=== PATIENT | female | born 1960 | race Caucasian/White ===

== ENCOUNTER → 2024-01-12 06:27 | Day surgery (SDC) | payer OTHER, SELFPAY | LOC: GI 06:27 | PROVIDERS: ATTENDING PHYSICIAN Internal Medicine Gastroenterology | DX: Z12.11 Encounter for screening for malignant neoplasm of colon (principal); K57.30 Diverticulosis of large intestine without perforation or abscess without bleeding; K64.8 Other hemorrhoids; K62.89 Other specified diseases of anus and rectum; D12.3 Benign neoplasm of transverse colon | CPT/HCPCS: 45385; 88305 ==

== ENCOUNTER → 2024-08-19 13:39 | Outpatient (REF) | payer SELFPAY | LOC: HWWDC 13:39 | PROVIDERS: ATTENDING PHYSICIAN Obstetrics & Gynecology; FAMILY PHYSICIAN Internal Medicine | DX: Z12.31 Encounter for screening mammogram for malignant neoplasm of breast (principal) | CPT/HCPCS: 77063; 77067 ==

== ENCOUNTER 2025-04-20 21:16 | Emergency (ER) | payer OTHER, SELFPAY ==
[2025-04-20 21:22] VITALS: BP 134/73
[2025-04-20 21:46] LABS: % Basophils 0.3 % (0-2); % Immature Granulocytes 0.4 % (0-0.5); % Lymphocytes 2.9 % (20.5-51.1); % Monocytes 3.8 % (1.7-9.3); % Neutrophils 92.6 % (42.2-75.2); Absolute Lymphocytes 0.3 10^3/uL (1.2-3.4); Absolute Monocytes 0.4 10^3/uL (0.1-0.6); Absolute Neutrophils 9.6 10^3/uL (1.4-6.5); Hematocrit 35.1 % (37.0-47.0); Hemoglobin 12.3 g/dL (12.0-16.0); Mean Corpuscular Volume 88.4 fL (81.0-99.0); Nucleated Red Blood Cells % 0 %; Platelet Count 156 10^3/uL (130-400); Red Blood Cell Count 3.97 10^6/uL (4.20-5.40); Red Cell Dist. Width 12.6 % (11.5-14.5); White Blood Cell Count 10.4 10^3/uL (4.8-10.8)
[2025-04-20 21:58] LABS: Lactic Acid 0.8 mmol/L (0.7-2.0)
[2025-04-20 22:00] LABS: ALT (SGPT) 50 U/L (0-35); AST (SGOT) 53 U/L (14-36); Albumin 3.8 g/dl (3.5-5.0); Alkaline Phosphatase 66 U/L (38-126); Blood Urea Nitrogen 16 mg/dl (7-17); Carbon Dioxide 25 mmol/L (22-30); Chloride 104 mmol/L (98-107); Glucose 128 mg/dl (70-99); Potassium 3.8 mmol/L (3.5-5.1); Sodium 135 mmol/L (135-145); Total Bilirubin 0.6 mg/dl (0.2-1.3); Total Protein 6.3 g/dl (6.3-8.2); eGFR > 60.00
[2025-04-20 22:08] LABS: COVID-19 Antigen Negative (Negative)
[2025-04-20 22:24] VITALS: BP 150/74
[2025-04-20 22:28] VITALS: BMI 25.5
[2025-04-20 23:51] VITALS: BP 131/69
[2025-04-20] MEDS: MOTRIN 600 MG PO (23:51)
[2025-04-20] MEDS: DECADRON 10 MG PO (23:51)
[2025-04-21] VITALS: BP 135/67
[2025-04-21 01:00] VITALS: BP 126/64
--- NOTE | 2025-04-21 02:38 | ED.GENMED ---
History of Present Illness
General
Chief Complaint: Fever
Source: patient
Exam Limitations: none
Time Seen by Provider: 04/20/25 22:56
Nursing documentation reviewed up to this point in time: agreed with
History of Present Illness
History of Present Illness:
Note:
CHIEF COMPLAINT(S)
Fever, chills, and head pressure.
HISTORY OF PRESENT ILLNESS
The patient is a 65-year-old female presenting with fever, chills, and head pressure. Symptoms began on Monday and were initially erratic. As of yesterday, the symptoms have persisted throughout the entire day, with today reported as worse. The
patient describes intense fever sweats lasting for a couple of hours, alternating with chills so severe that she experiences shaking. The patient reports significant fatigue, She was concerned about a sinus infection and contacted a telemedicine
service earlier today, resulting in a prescription for an antibiotic. The patient reports taking the Augmentin but says, 'the meds do not seem to help yet.' She took 1 dose.
She has experienced vomiting prior to her arrival at the facility, without any blood in the vomitus�just orange juice. She denies diarrhea or constipation and describes normal bowel movements. She reports decreased urine output despite high fluid
intake. There is no chest pain or shortness of breath reported.
The patient mentions starting a blood pressure medication a week ago, which she discontinued due to adverse effects including a racing heart and feeling nauseous and lightheaded.
MEDICATIONS
- Lexapro
- Recently discontinued a blood pressure medication due to side effects.
REVIEW OF SYSTEMS
- General: Fever, sweats, chills, extreme fatigue
- Gastrointestinal: Nausea, vomiting
- Genitourinary: Decreased urine output
- Neurological: Lightheadedness on a previous medication (discontinued)
- Respiratory: No shortness of breath
- Cardiovascular: No chest pain
PHYSICAL EXAM
- Head: Evidence of fluid behind the ears
- Respiratory: Lungs sound perfect
Nursing notes reviewed and vital signs reviewed.
PLAN
The plan includes administering fluids and further evaluation once lab results are available. Consideration to start a steroid due to suspected excessive fluid behind ears, aiming for symptomatic relief.
DIFFERENTIAL DIAGNOSIS
The Differential Diagnosis includes, in no particular order and is not limited to:
1. Acute bacterial sinusitis
2. Viral infection (such as influenza)
3. Medication side effect or reaction
4. Urinary tract infection
5. Dehydration
7. Endocrine disorder (such as hyperthyroidism)
Disposition:
DIAGNOSIS
- Viral syndrome
SUMMARY OF ENCOUNTER
The patient is a 65-year-old female presenting with fever, chills, and head pressure since Monday. She described feeling like having the flu and started Augmentin for a suspected sinus infection. She was taking Advil and was seen in the emergency
department while febrile. Upon examination, the patient was afebrile and reported feeling much better. Lab results showed slightly elevated prednisone levels, and sinus imaging was negative.
DISPOSITION
Discharge
ASSESSMENT
The patient was assessed with a viral syndrome given her presentation and lab results.
PLAN
The plan is to discharge the patient with instructions for ongoing care as her symptoms are improving.
MEDICATION RECONCILIATION
- Augmentin was started prior to arrival for a suspected sinus infection.
- Advil was taken for symptom management.
MEDICAL DECISION MAKING
Number and Complexity of Problems Addressed:
The patient presented with acute concerns of fever and chills suggesting a viral infection. Administered labs and imaging to rule out other potential causes.
Data:
Lab results were collected and analyzed, with slightly elevated prednisone and negative sinus imaging influencing the final diagnosis decision.
Risk:
The patient was discharged with a diagnosis of viral syndrome. Her current medication and health status were reviewed and managed appropriately.
Phy Exam
Physical Exam
Physical Exam:
.
Sepsis
Sepsis Screening
Sepsis Assessment: Sepsis
Sepsis Screen
Sepsis Screen: Sepsis
Date: 04/22/25
Time: 22:08
Course
Orders/Labs/Results
Orders:
Orders
04/20/25 21:27
CR Chest - 2 Views Urgent
Comment:
Reason For Exam: suspected infection
04/20/25 21:33
COVID-19 Antigen Urgent
Source: Nasal Swab
Complete Blood Count/With Diff Urgent
Comprehensive Metabolic Panel Urgent
Lactic Acid Q4H
Comment: ON ICE, CANCEL 2ND ORDER IF FIRST LACTIC ACID LEVEL <2
Influenza A+B Rapid Molecular Urgent
VINEET Source: Nasal Swab
Specimen Description:
04/20/25 23:17
Ibuprofen [Motrin] 600 mg PO NOW STA
04/20/25 23:18
Dexamethasone Pf [Decadron] 10 mg PO NOW STA
04/21/25 01:07
CT Sinuses W/o Iv Contrast Urgent
Comment:
Reason For Exam: fever sinus pressure
Abnormal Lab Results
04/20/25
21:33
RBC 3.97 L 10^6/uL
(4.20-5.40)
Hct 35.1 L %
(37.0-47.0)
Absolute Neuts (auto) 9.6 H 10^3/uL
(1.4-6.5)
Absolute Lymphs (auto) 0.3 L 10^3/uL
(1.2-3.4)
Neutrophils % 92.6 H %
(42.2-75.2)
Lymphocytes % 2.9 L %
(20.5-51.1)
Glucose 128 H mg/dl
(70-99)
AST 53 H U/L
(14-36)
ALT 50 H U/L
(0-35)
04/20/25 21:33
04/20/25 21:33
Vital Signs
Initial and Last Documented VS:
Initial Vital Signs
Temp Pulse Resp BP Pulse Ox
101.3 F H 85 20 134/73 92
04/20/25 21:22 04/20/25 21:22 04/20/25 21:22 04/20/25 21:22 04/20/25 21:22
Last Documented Vital Signs
Temp Pulse Resp BP Pulse Ox
98.5 F 66 16 126/64 94
04/21/25 01:37 04/21/25 02:45 04/21/25 01:15 04/21/25 01:00 04/21/25 02:30
*Critical Care Note
Total Time (30-74mins, 75-104mins- exclusive of procedures): Not Applicable
ED Attending Note
-
Portions of this chart may have been created with voice recognition software.� Occasional wrong word or��sound alike� substitutions may have occurred due to the inherent limitations of voice recognition software.
Discharge Plan
Departure
Patient Disposition: Home (Routine Discharge)
Date of Disposition: 04/21/25
Time of Disposition: 02:41
Patient with high blood pressure during this ER visit?: Yes
Condition: Good
Discharge Problem:
Viral syndrome, Sinusitis
Instructions: Viral Syndrome (DC), Sinusitis in adults - ED discharge instructions, BLOOD PRESSURE
Prescriptions:
No Action
estradiol [Estradiol Transdermal Patch] 0.05 mg/24 hr Patch Weekly
1 patch TRANSDERMAL QWEEK
escitalopram oxalate [Lexapro] 10 mg Tablet
10 mg PO DAILY
Referrals:
Mary Gupta MD [Family Provider, Internal Medicine]
Activity Restrictions/Additional Instructions:
Please continue to take your Augmentin as previously prescribed
Thank You for choosing [facility].
It was a pleasure meeting you and taking part in your care. We hope for your continued healing and wellness.
Please read discharge instructions in their entirety. However, they are for general education and may not describe your exact diagnosis at discharge. Information on your ER visit and medical conditions were discussed with you along with appropriate
follow up information...
If indicated, please take your medications as instructed and indicated on discharge paperwork.
Please schedule a follow up appointment as directed. Call to schedule an appointment
Please return to the emergency department with ANY change in, persisting, or worsening of symptoms. If any of your symptoms do not improve, or persist, or become more severe within 6-12 hours, please return to the emergency department for further
care.
Please return to the emergency department if you develop a headache, neck pain/stiffness, fever greater than 100.4F, chest pain, shortness of breath, persistent nausea, vomiting, slurred speech, difficulty walking, numbness/tingling, weakness, signs
of infection or any other symptoms that are worrisome to you.
If you have any questions or concerns please do not hesitate to call the Hospital at or E-mail me directly at [email or web address]
Interventions
Interventions:
*Risk Screen - Suicide Last Done: 04/20/25 21:22
*General Assessment Last Done: 04/20/25 21:22
*Neglect/Abuse Screening Last Done: 04/20/25 21:22
*Nursing Disposition Last Done: 04/21/25 03:03
ED- Neurological Assessment Last Done: 04/20/25 23:16
ED-Skin Assessment Last Done: 04/20/25 23:16
Discharge Date and Time
Discharge Date/Time: 04/21/25 03:03
Print Language: [email or web address]
== END 2025-04-21 03:03 | disposition home or self-care (01) ==
LOC: EMR 21:16
PROVIDERS: Student in an Organized Health Care Education/Training Program; EMERGENCY PHYSICIAN Student in an Organized Health Care Education/Training Program; FAMILY PHYSICIAN Internal Medicine
DX: J01.90 Acute sinusitis, unspecified (principal); R42 Dizziness and giddiness; R11.2 Nausea with vomiting, unspecified; B34.9 Viral infection, unspecified; Z11.52 Encounter for screening for COVID-19; I10 Essential (primary) hypertension
CPT/HCPCS: 99284; 70486; 71046; 80053; 83605; 85025; 87502; 87811

== ENCOUNTER → 2025-09-24 14:35 | Outpatient (REF) | payer OTHER, SELFPAY | LOC: HWRAD 14:35 | PROVIDERS: ATTENDING PHYSICIAN Nurse Practitioner; FAMILY PHYSICIAN Internal Medicine | DX: N39.0 Urinary tract infection, site not specified (principal) | CPT/HCPCS: 76770; 76856 ==